=== PATIENT | female | born 1975 | race Caucasian/White ===

== ENCOUNTER → 2017-10-12 12:51 | Outpatient (CLI) | payer MEDICAID, SELFPAY ==
--- NOTE | 2017-10-12 12:55 | US_ITS ---
STUDY: THYROID ULTRASOUND REASON FOR EXAM: Female, 42 years old. Right side Nodule TECHNIQUE: Ultrasound evaluation of the thyroid was performed with real-time and static padron-scale imaging. COMPARISON: None. FINDINGS: RIGHT LOBE: The right lobe of the thyroid gland measures 5.1 x 2.6 x 1.7 cm. There is a heterogeneous echotexture. There is a 2.0 x 1.4 x 1.9 cm dominant partly solid partly cystic or hypoechoic center with vascularity . This is adjacent to a hypoechoic vascular appearing nodule that measures 1.2 x 0.9 cm. This is adjacent to a cystic structure with peripheral vascularity extends echogenicity measuring 0.7 x 0.7 cm. LEFT LOBE: The left lobe of the thyroid gland measures 5.1 x 1.7 x 1.4 cm. There is a homogeneous echotexture. There are several well-circumscribed nodules within the left thyroid. This is best seen on the image labeled left thyroid sagittal view. There is one in the superior aspect of the thyroid measuring 0.6 x 0.3 cm which is anechoic. There is a mixed echogenicity with calcification in the mid thyroid measuring 0.4 x 0.5 cm. In the lower pole there is a hypoechoic mass with a hyperechoic and hypoechoic center portion measures 1.1 x 0.5 cm. There is a 0.4 x 0.2 cm low attenuating mass in the upper aspect of the thyroid. ISTHMUS: The isthmus measures 1.5 mm there is a right-sided midline hypoechoic mass measuring 0.3 cm and the right midline thyroid.. The regional lymph nodes are normal. US/Thyroid IMPRESSION: There is a similar size of the bilateral thyroid glands which are upper limits of normal volume for patient's gender. Although there are small multiple nodules in both thyroid lobes, There is a dominant solid mass with a hypoechoic center is peripheral vascularity in the right for which further evaluation with tissue diagnosis should be considered. Potentially nuclear medicine scan would be helpful for further evaluation but should not necessarily exclude consideration for biopsy. Electronically Signed: Cat Mock MD at 10:32 EST Tel , Service support ,
== END ==
PROVIDERS: Family Provider Family Medicine; PCP Family Medicine; Visit Provider Family Medicine
DX: E04.1 Nontoxic single thyroid nodule (principal)
CPT/HCPCS: 76536

== ENCOUNTER → 2017-10-25 14:07 | Outpatient (CLI) | payer MEDICAID, SELFPAY ==
--- NOTE | 2017-10-25 | FLU_PTH ---
PATIENT: MORALES TOURE [facility] U#:[id number] AGE/SX: 50/F ROOM: RE10/25/[address]: Dr. Yoselin Frye MD : 1975 BED: DIS: SPEC #: [id number] RECD: 10/25/17 14:55 STATUS: RICHELLE SOLANGE #: [id number] ABIGAIL: 10/25/17 00:[address]: Yoselin Frye DEPT: CYTOLOGY RECD BY: Macario Gaona Tissues: A - Thyroid gland, NOS B - Thyroid gland, NOS C - Thyroid gland, NOS D - Thyroid gland, NOS Procedures: Pap Stain (control) Special Stain Group II Surgery Specimen Level IV Cell Block Cytospin Fluid HEADER OPERATION: Not noted PRE-OP DIAGNOSIS: Abnormal ultrasound thyroid TISSUE SUBMITTED: A ? Right side thyroid biopsy fluid for cytology, B ? Right thyroid 6 slides, C ? Left side thyroid biopsy fluid for cytology, D ? Left thyroid 6 slides DIAGNOSIS CYTOLOGY A. Right thyroid fluid for cytology (cytospin and cell block): Negative for malignant cells. B. Right thyroid nodule, FNA (smears): Consistent with benign follicular nodule. See cytology study and comment. C. Left thyroid fluid for cytology (cytospin and cell block): A few atypical follicular cells noted suspicious for papillary thyroid carcinoma. See cytology study and comment. D. Left thyroid nodule, FNA (smears): A few atypical follicular cells noted suspicious for papillary thyroid carcinoma. See cytology study and comment. COMMENT C. Immunohistochemistry ([id number]) supports the above diagnosis. Correlation with clinical, radiologic findings and appropriate follow up are necessary. Case has been reviewed in consultation with Dr. Krueger who concurs with the above diagnosis. IDC:AM CYTOLOGY STUDY Slides are reviewed. A. The specimen consists of rare benign follicular cells. B. The specimen is adequate for evaluation. The specimen consists of benign follicular cells and minimal amount of diluted colloid. C. The specimen consists of a few clusters of atypical follicular cells suspicious for papillary thyroid carcinoma. D. The specimen is adequate for evaluation. The specimen consists of follicular cells with a few follicular cells in clusters showing nuclear grooving and rare giant cells. Significant amount of colloid is not seen. CYTOLOGY GROSS A - Received is 30 ml of brown cloudy fluid labeled with the patient's name and and designated per the requisition as right thyroid. Submitted for cytology preparation including cell block. B - Received are six smears labeled with the patient's name and designated per the requisition as right thyroid. Submitted for staining. C - Received is 30 ml of brown cloudy fluid labeled with the patient's name and and designated per the requisition as left thyroid. Submitted for cytology preparation including cell block. D - Received are six smears labeled with the patient's name and designated per the requisition as left thyroid. Submitted for staining. 10/25/17 TC:5 CPT: 87324 x2, 77268 x2, 32434 x2 ADDENDUM ADDENDUM ADDENDUM ADDENDUM ADDENDUM ADDENDUM ADDENDUM ADDENDUM ADDENDUM ADDENDUM ADDENDUM ADDENDUM ADDENDUM ADDENDUM 12/27/2017 15:02 ADDENDUM 12/27/2017 15:02 ADDENDUM 12/27/2017 15:02 ADDENDUM 12/27/2017 15:02 ADDENDUM 12/27/2017 15:02 This addendum is added to incorporate an outside pathology consultation report. The case was examined at [facility] (#[id number]) and the following diagnosis was rendered. A & B. Right thyroid, fine needle aspiration: Benign. Benign follicular cells. Consistent with colloid nodule. C & D. Left thyroid, fine needle aspiration: Suspicious for papillary thyroid carcinoma. Please see complete above mentioned consultation report in EMR
--- NOTE | 2017-10-25 | IMM_PTH ---
PATIENT: MORALES TOURE LOC: [facility] U#:[id number] AGE/SX: 50/F ROOM: RE10/25/[address]: Dr. Yoselin Frye MD : 1975 BED: DIS: SPEC #: [id number] RECD: 10/26/17 13:59 STATUS: RICHELLE REQ #: [id number] ABIGAIL: 10/25/17 00:[address]: Yoselin Frye DEPT: IMMUNOHISTOCHEMISTRY RECD BY: Funmi Cheney ENTERED: 10/26/17 14:00 SP TYPE: IMMUNO OTHR DR: No Primary Care Phys Tissues: C - Thyroid gland, NOS Procedures: HBME (initial) CD56 (add) CK19 (add) GAL-3 (add) PHYSICIAN & INSTITUTION [place] [address] SPECIMEN INFORMATION: Tissue Source: C ? Left thyroid biopsy fluid for cytology Clinical Info: Abnormal thyroid ultrasound Specimen Number: [id number] CPT code: 88025, 29665 x3 METHODOLOGY: Deparaffinized sections of prefer/formalin-fixed tissue or PAP/DQ stained slides are incubated with monoclonal/polyclonal antibodies/oligonucleotide probes. Localization is made via biotin free immunoperoxidase method. Appropriate controls are performed and reacted as expected. Results on target cell population are indicated in the following table: RESULTS: ANTIBODY / CLONE RESULT Block C HBME1 (HBME-1) positive CK19 (A53-B/A2.26) positive CD56 (123C3.D5) negative GAL3 (9C4) positive These tests were developed and their performance characteristics determined by [facility]. They may not have been cleared or approved by the U.S. Food and Drug Administration. The FDA has determined that such clearance or approval is not necessary. INTERPRETATION: C. Left thyroid biopsy fluid for cytology: A few atypical follicular cells noted suspicious for papillary thyroid carcinoma. SJ:chaitanya 10/29/17 Case has been reviewed in consultation with Dr. Krueger who concurs with the above diagnosis. IDC:SPENSER
== END ==
PROVIDERS: Visit Provider Surgery
DX: R93.8 Abnormal findings on diagnostic imaging of other specified body structures (principal)
CPT/HCPCS: 88108; 88305; 88313; 88341; 88342

== ENCOUNTER 2017-11-09 16:14 | Observation (INO) | payer MEDICAID, SELFPAY ==
[2017-11-07 13:31] LABS: Hematocrit 40.8 % (37-47); Mean Corp Hgb Conc 34.3 g/gl (32-36); Mean Corpuscular Hgb 31.8 pg (27.0-32.0); Mean Corpuscular Volume 92.7 fL (81-99); Mean Platelet Vol. 10.6 fl (6.2-12.0); Platelet Count 194 K/mm3 (150-450); RBC Distribution Width SD 43.4 fl (35.1-43.9); White Blood Count 6.5 K/mm3 (4.4-11.0)
[2017-11-07 13:32] LABS: Scan Indicated on CBC? Y/N NO
[2017-11-09] VITALS (9 sets, daily range): BP systolic 103–140; BP diastolic 55–122; PULSE 63–135; RESP 16–18; TEMP 36.3–36.6; O2SAT 94–100; BMI 30.1
--- NOTE | 2017-11-09 | IMM_PTH ---
PATIENT: MORALES TOURE LOC: [facility] U#:[id number] AGE/SX: 42/F ROOM: MS315 RE11/09/[address]: Dr. Yoselin Frye MD : 1975 BED: 1 DIS: 11/10/2017 SPEC #: [id number] RECD: 11/13/17 12:22 STATUS: RICHELLE REQ #: [id number] ABIGAIL: 11/09/17 00:[address]: Yoselin Frye DEPT: IMMUNOHISTOCHEMISTRY RECD BY: Funmi Cheney ENTERED: 11/13/17 12:24 SP TYPE: IMMUNO OTHR DR: Sergio Tejeda Tissues: A - Thyroid gland, NOS B - Thyroid gland, NOS Procedures: HBME (initial) CD20 (add) CD45 (add) CD5 (add) CD56 (add) CD79A (add) CK19 (add) GAL-3 (add) MACRO (add) TTF1 (add) CD3 (initial) PHYSICIAN & [address] [address] SPECIMEN INFORMATION: Tissue Source: A ? Left thyroid, B ? Remnant left thyroid gland Clinical Info: Left thyroid nodule Specimen Number: [id number] A & B CPT code: 42834 x2, 30310 x10 METHODOLOGY: Deparaffinized sections of prefer/formalin-fixed tissue or PAP/DQ stained slides are incubated with monoclonal/polyclonal antibodies/oligonucleotide probes. Localization is made via biotin free immunoperoxidase method. Appropriate controls are performed and reacted as expected. Results on target cell population are indicated in the following table: RESULTS: ANTIBODY / CLONE RESULT Block A HBME1 (HBME-1) positive CK19 (A53-B/A2.26) positive GAL3 (9C4) positive CD56 (123C3.D5) negative TTF-1 (8G7G3/1) positive, dim Block B CD3 (PS1) positive CD5 (SP10) positive CD20 (L26) positive CD45 (RP2/18) positive CD79a (11E3) positive Macro (HAM-56) positive, occasional TTF-1 (8G7G3/1) negative These tests were developed and their performance characteristics determined by [facility]. They may not have been cleared or approved by the U.S. Food and Drug Administration. The FDA has determined that such clearance or approval is not necessary. INTERPRETATION: A. Left thyroid, thyroidectomy: Papillary microcarcinoma. B. Remnant left thyroid gland: Benign (polytypic) lymphoid tissue. AM:rg 3/7/18
--- NOTE | 2017-11-09 | THYROID_PTH ---
PATIENT: MORALES TOURE LOC: [facility] U#:[id number] AGE/SX: 42/F ROOM: MS315 RE11/09/[address]: Dr. Yoselin Frye MD : 1975 BED: 1 DIS: 11/10/2017 SPEC #: [id number] RECD: 11/09/17 14:30 STATUS: RICHELLE REMahesh #: [id number] ABIGAIL: 11/09/17 00:[address]: Yoselin Frye DEPT: SURGICAL PATHOLOGY RECD BY: Funmi Cheney ENTERED: 11/09/17 14:48 SP TYPE: THYROID OTHR DR: Sergio Tejeda Tissues: A - Thyroid gland, NOS B - Thyroid gland, NOS Procedures: Frozen Section (charge) Surgery Specimen Level IV Frozen (no charge) HEADER OPERATION: Thyroidectomy, frozen section PRE-OP DIAGNOSIS: Left thyroid nodule TISSUE SUBMITTED: A - Left thyroid tissue to lab 1426, B ? Remnant left thyroid gland FROZEN SECTION DIAGNOSIS A. Left thyroid tissue, biopsy: Calcified nodule. Atypical cellular follicular lesion, suspicious for papillary carcinoma. Lymphocytic thyroiditis. SJ:chaitanya 11/09/17 MICROSCOPIC DIAGNOSIS A. Left thyroid, thyroidectomy: Papillary microcarcinoma (5 mm). Associated fibrosis and calcifications. One benign lymph node. Chronic lymphocytic thyroiditis. B. Remnant, left thyroid gland, biopsy: Polytypic (benign) lymphoid tissue. See comment. AM:chaitanya 11/14/17 COMMENT A. A single calcified and hyalinized nodule is present and associated with a papillary carcinoma with follicular architecture. A & B. Immunohistochemistry ([id number]) supports the above diagnosis. Case has been reviewed in consultation with Dr. Hi who concurs with the above diagnosis. IDC: Reference is made to the patient?s left thyroid nodule, fine needle aspiration ([id number]) in which atypical follicular cells suspicious for papillary thyroid carcinoma were identified. Case discussed with Dr. Frye on 11/14/17 at 12:50 p.m. MICROSCOPIC DESCRIPTION Slides are reviewed. GROSS DESCRIPTION A - Received fresh for frozen section diagnosis labeled with the patient's name is a specimen designated left thyroid tissue. The specimen consists of a piece of pink-red soft tissue measuring 1.5 x 0.5 x 0.2 cm. A nodule is noted at one edge of the specimen measuring 0.3 cm in diameter. The specimen is bisected and nodule cuts with gritty sensation. The entire specimen is submitted for frozen section diagnosis. The specimen will be submitted after short decalcification. / SJ:chaitanya 11/09/17 B - Received in fixative is one container labeled with the patient's name and designated remnant left thyroid gland. The specimen consists of a piece of yellow adipose tissue weighing 0.4 gm and measuring 1.5 x 1 x 0.3 cm. The entire specimen is submitted in one cassette. / SJ:chaitanya 11/12/17 TC:0 [facility]: 47246 x2, 86101 ADDENDUM ADDENDUM ADDENDUM ADDENDUM ADDENDUM ADDENDUM ADDENDUM ADDENDUM ADDENDUM ADDENDUM ADDENDUM ADDENDUM ADDENDUM 12/26/2017 14:34 ADDENDUM 12/26/2017 14:34 ADDENDUM 12/26/2017 14:34 ADDENDUM 12/26/2017 14:34 ADDENDUM 12/26/2017 14:34 This addendum is added to incorporate an outside pathology consultation report. The case was examined at [facility] (#[id number]) and the following diagnosis was rendered. A. Left thyroid tissue, excision: 0.5 cm focus of papillary thyroid carcinoma. One lymph node, negative for neoplasm. B. Remnant left thyroid gland, excision: One lymph node with fibroadipose tissue, negative for neoplasm. Please see complete above mentioned consultation report in EMR
[2017-11-09] MEDS: Clindamycin 900 MG/50 ML BAG 75 MG IV (13:09)
--- NOTE | 2017-11-09 13:18 | PCM.IMDPSTOP ---
Immediate Post-Op Note Date of Procedure: 11/09/17 Primary Surgeon/Physician: Yoselin Frye cement mason highways and streets: Alfredito Gonsales Pre-Operative Diagnosis: left thyroid nodule - papillary neoplasm Post-Operative Diagnosis: same as above, can't be called cancer by pathologist Surgery/Procedure Performed:: left thyroidectomy Description of Surgical Findings:: very atretic left thyroid gland with fatty replacement Estimated Blood Loss: < 10 ml Specimen's removed: left thyroid lobe and isthmus Drains: 10 Fr round drain in thyroid bed Type of Anesthesia:: General ASA Class: ASA2 Mod Systematic Disease - Admit VTE Documentation VTE Present on Admission: Yes VTE Mechan Device Prophylaxis: SCD's
[2017-11-09] MEDS: Mupirocin Ointment 22gm Tube 1 APPLIC (15:03)
[2017-11-09] MEDS: Bupiv/Epi 0.5% Mpf 30 ML Vial (15:06)
--- NOTE | 2017-11-09 15:15 | OP.PCM_ITS ---
Report of Operation Date of Procedure: 11/09/17 Pre-Operative Diagnosis: left thyroid nodule - papillary neoplasm Post-Operative Diagnosis: same as above, final pathology pending Surgery/Procedure Performed:: left thyroidectomy Description of Surgical Findings:: very atretic left thyroid gland with fatty replacement, thyroid nodule - can't be called cancer by pathologist on frozen section outside solar sales consultant: Alfredito Gonsales student Gonzalez Harper Type of Anesthesia:: General Anesthesiologist: Megan Adler Specimen's removed: left thyroid lobe Drains: 10 Fr round drain in thyroid bed Estimated Blood Loss (mL): < 10 ml Fluids Replaced: 1500 ml RL Description of Procedure: After informed consent was obtained, the patient was brought to the Operating Room and placed in the supine position. Appropriate time out protocol was followed. She was then placed under GETA. The patient was then positioned with arms tucked and appropriate padding, with neck extension, and in the slightly reverse Trendelenburg position. The neck and upper chest were then prepped with a sterile surgical skin preparation and appropriate sterile surgical drapes were placed. The landmarks were identified and a low cervical collar incision was made with a 15 blade scalpel and carried down to the subcutaneous tissues using electrocautery. The platysma was divided along the incision and then flaps were created superiorly to the cricoid cartilage level and inferiorly to the sternal notch. The fascia overlying the strap muscles was then divided along the midline. The left thyroid gland was approached. Given anatomical landmarks, the left thyroid gland was found to be very atretic and with fatty replacement. The plane between the thyroid gland anterior and the strap muscles posteriorly was then bluntly dissected to expose the left thyroid gland. Dissection continued layer by layer to identify the inferior pole vessels of the left thyroid gland. The inferior pole vessels were identified and there was a nodular density in this area that was felt to be a palpable lymph node, therefore this tissue in its entirety was also dissected from its surrounding attachments. The vessels were ligated with ligaclips and then transected with the Harmonic scalpel. The middle thyroid vein was identified and also ligated with ligaclips and then transected with the Harmonic scalpel. The inferior pole was then bluntly dissected free of the surrounding investiture. The left lobe of the thyroid thus could be retracted medially. Attention was then directed to the superior pole of the thyroid gland. The superior pole vessels were then ligated adjacent to the thyroid lobe in order to prevent damage to the superior laryngeal nerve. The parathyroid gland was identified and care was taken to preserve the blood supply to the parathyroid gland. The recurrent laryngeal nerve was identified. It is of note that the thyroid appeared to have slight inflammation consistent with thyroiditis type presentation. Also was noted that the surrounding tissues appeared to be more adherent to the thyroid gland than usual. Once the thyroid tissue was free from the attachments to the trachea with the recurrent laryngeal nerve protected and dissection continued to separate the thyroid gland from the trachea. It was then forwarded to pathology. A frozen section revealed papillary neoplasm versus chronic lymphocytic thyroid changes. Surgicel was used for hemostasis. A small 10 Kazakh drain was then placed in the thyroid bed and brought out through the incision. The fascia of the strap muscles was then reapproximated along the midline using Vicryl suture. The platysma muscle was then reapproximated in a transverse fashion using interrupted 2-0 Vicryl suture. The skin incision was then reapproximated using 4 -0 Monocryl in a running subcuticular fashion. The drain was brought out through the middle portion of the incision and sutured to the skin using nylon suture. The skin closure was reinforced using Cavilon and Steri-Strips and a sterile OpSite dressing was applied. Prior to extubation, a glide scope examination was done. The vocal cords were noted to adduct bilaterally. The patient was then extubated. She was brought to the Recovery Room in stable condition. She was able to phonate the letter E without difficulty. Patient tolerated procedure well. - Complications none noted - Admit VTE Documentation VTE Present on Admission: Yes VTE Mechan Device Prophylaxis: SCD's
[2017-11-09] MEDS: ALPRAZolam 0.5 MG Tablet PO (17:42)
[2017-11-09] MEDS: Dextrose 5%-Lactated Ringers 1,000 ML 75 ML IV (17:42)
[2017-11-09] MEDS: Ibuprofen 400 MG Tablet PO (17:42)
[2017-11-09] MEDS: Ondansetron 4 MG/2 ML Vial IV (20:43)
[2017-11-09] MEDS: 0.9% NaCl Peripheral Flush Adult/Peds IV (20:43)
[2017-11-09] MEDS: HYDROmorphone HCL 0.5 MG/0.5 ML SYRINGE IV (20:43)
--- NOTE | 2017-11-09 22:45 | NURSING ---
Patient markedly anxious this evening. Calling staff to room frequently for concerns r/t to surgery. Patient is googling information about surgery and medications. Some items she is concerned about are: Calcium levels, thyroid storm, DEWAYNE drains, Infection, hypo/hyperparathyroid and IV fluid. She is asking many questions, but is not easily re-assured and will ask someone else the same question. She is refusing PRN Ativan at this time. She also refused QHS Restoril because the commercial lists bad side effects. Patient is also concerned about her IVF and is requesting for the fluids to be decreased. Informed I have no order and would have to call Dr. Frye, but patient remained adamant that she did not was IVF. I educated patient on surgical reasoning for IVF. Patient remains concerned-Will continue to monitor.
[2017-11-10] MEDS: 0.9% NaCl Peripheral Flush Adult/Peds IV ×2 (00:32→02:25)
[2017-11-10] MEDS: HYDROmorphone HCL 0.5 MG/0.5 ML SYRINGE IV ×2 (00:32→09:26)
--- NOTE | 2017-11-10 00:32 | NURSING ---
Patient refusing oral pain pills @ this time. Requesting IV pain medication
[2017-11-10] MEDS: LORazepam 2 MG/ML Syringe 0.5 MG IV (02:25)
[2017-11-10 02:30] VITALS: BP 104/59; PULSE 63; RESP 16; TEMP 36.7; O2SAT 95
[2017-11-10] MEDS: oxyCODONE 5 MG Tablet PO ×2 (03:57→08:24)
[2017-11-10] MEDS: ALPRAZolam 0.5 MG Tablet 1 MG PO (07:18)
[2017-11-10 08:34] VITALS: BP 110/62; PULSE 65; RESP 16; TEMP 36.7; O2SAT 97
[2017-11-10] MEDS: Docusate Sodium 100 MG Capsule PO (11:43)
[2017-11-10 11:46] VITALS: BP 113/65; PULSE 64; RESP 16; TEMP 36.6; O2SAT 95
--- NOTE | 2017-11-10 12:39 | PCM.PN.SRG ---
Subjective: patient did not sleep last night, is still very anxious, seems to have chest muscle spasms due to anxiety causing increased pain, I have counseled her about narcotics use, she wanted 10 mg percocet last night - Physical Exam General: Alert, Oriented x3 Oral: Moist Mucosa Neck: Supple, - - dressing intact, no seepage, drain removed without difficulty Lungs: Normal air movement Vital Signs Temp Pulse Resp BP Pulse Ox 97.8 F 64 16 113/65 95 11/10/17 11:46 11/10/17 11:46 11/10/17 11:46 11/10/17 11:46 11/10/17 11:46 Oxygen Delivery Method Room Air Weight: 82.2 kg Body Mass Index (BMI) 30.1 Intake and Output for Last 24 Hours 11/08/17 11/09/17 11/10/17 23:59 23:59 23:59 Intake Total 1900 / 1900 2240 / 2240 Output Total 145 / 145 4100 / 4100 Balance 1755 / 1755 -1860 / -1860 Assessment/Plan Impression: s/p left thyroidectomy plan: discharge to home given ativan/oxyir/phenergan for discharge I have counseled patient about narcotics use, she states that she will take as minimal amount as possible she is to follow up on in my office
--- NOTE | 2017-11-10 12:41 | PCM.DC.GS ---
Discharge Diet: No Restrictions - drink plenty of fluids Discharge Activity: Return to Normal Activity, May not drive while taking narcotic pain medications., May Shower Call your doctor if your incision/area has: Foul Smelling Discharge, - - saturation of the dressing Call your doctor if you observe: Fever of 101 or Higher Additional Dressing/Incision Instructions:: Leave dressing in place, may get wet in shower Additional Instructions: If you become short of breath or have chest pain, go to the nearest ER for evaluation. Allergies/Adverse Reactions: Allergies codeine [From Tylenol-Codeine #3] Allergy (Verified 11/06/17 08:48) Shortness of breath diphenhydramine HCl [From Benadryl] Allergy (Verified 11/06/17 08:48) Unknown nitrofurantoin [From Macrobid] Allergy (Verified 11/06/17 08:48) Unknown erythromycin base Adverse Reaction (Verified 11/06/17 08:48) YEAST INFECTION oxycodone [From Percocet] Adverse Reaction (Verified 11/06/17 08:48) Other MADE HER FEEL LIKE SHE WAS GOING TO JUMP OUT OF HER SKIN Medications to take at Discharge ALPRAZolam [Xanax] 0.5 mg PO BID 10/31/14 Ibuprofen 800 mg PO Q8H PRN PRN #30 tablet 06/14/17 Lorazepam [Ativan] 0.5 mg PO DAILY 5 Days #5 tab 11/10/17 ProMETHAzine [Phenergan] 25 mg PO Q4H PRN PRN 3 Days #5 tab 11/10/17 The following prescriptions were given: ProMETHAzine [Phenergan] 25 mg PO Q4H PRN PRN 3 Days #5 tab PRN Reason: Nausea/Vomiting Lorazepam [Ativan] 0.5 mg PO DAILY 5 Days #5 tab Please Follow Up With: Yoselin Frye MD - call When: to be seen on Nov 15, please call for time, thank you
== END 2017-11-10 13:57 | disposition home or self-care (01) ==
LOC: MS3 16:28
PROVIDERS: Admitting Provider Surgery; Visit Provider Surgery
PROC: (CPT 60220; principal; 2017-11-09 13:15)
DX: E04.1 Nontoxic single thyroid nodule (principal); E06.3 Autoimmune thyroiditis; F41.9 Anxiety disorder, unspecified; F17.200 Nicotine dependence, unspecified, uncomplicated; E78.00 Pure hypercholesterolemia, unspecified; Z79.899 Other long term (current) drug therapy
CPT/HCPCS: 60220; 36415; 85027; 88305; 88307; 88331; 88341; 88342; 96361; 96374; 96375; 96376; 99218; J3010; J7120; A4216; G0378; G0379; J2405

== ENCOUNTER 2018-05-20 05:58 | Emergency (ER) | payer MEDICAID, SELFPAY ==
[2018-05-20 06:01] VITALS: BP 106/64; PULSE 94; RESP 16; TEMP 36.7; O2SAT 98; BMI 34.2
--- NOTE | 2018-05-20 06:32 | ED.RN ---
0625 PT WAS IN THE BATHROOM AND SHE LEFT AND THE BATHROOM SMELLED OF SMOKE.PT DID NOT HAVE AN IV.
--- NOTE | 2018-05-20 06:48 | EKG12_ITS ---
Test Reason : CP Blood Pressure : / mmHG Vent. Rate : 097 BPM Atrial Rate : 097 BPM P-R Int : 144 ms QRS Dur : 070 ms QT Int : 372 ms P-R-T Axes : 049 032 040 degrees QTc Int : 472 ms Normal sinus rhythm Normal ECG Confirmed by GERARDO ROSALES MD ([id number]), order editor NICK DUBOIS ([id number]) on 05/22/2018 1:36:46 PM Referred By: KERRIE Confirmed By:GERARDO ROSALES MD
--- NOTE | 2018-05-20 06:49 | ED.VIS.GEN ---
History of Present Illness Chief Complaint: Chest Pain Informant: Patient Onset: Hours - 12-13 Context: Gradual Onset Timing: Intermittent - but mostly present, constant when there, lasting for hours Quality: squeezing Location: substernal, mid-chest Current Severity: gone Maximum Severity: Moderate Worsened by: nothing Relieved by: nothing Associated Symptoms: R upper arm cramping. no sob, n/v, other radiation, diaphoresis, palps. Narrative: Patient states she drank an entire bottle of red wine just prior to arrival, hoping it would help but it did not do anything. However, she has no discomfort right now. I initially saw the patient after 30 minutes of being here, because just after her EKG being performed I went into the room and she was not there, because she was in the bathroom smoking. She then went outside to finish her cigarette, and returned to her ER room. She does not recall having had these symptoms before. They have been nonpleuritic. No other associated symptoms or near syncope. She asked if these symptoms could be due to lots of stress, she buried her children last year. No recent travel, immobilization, hospitalization, leg pain or swelling, or history of DVT/PE. 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 She states she is in full remission and has undergone no chemotherapy or other treatment since her surgery. - Past Medical History (1) Papillary thyroid carcinoma Status: Resolved Past Medical History - Allergies and Home Meds Allergies/Adverse Reactions: Allergies codeine [From Tylenol-Codeine #3] Allergy (Verified 05/20/18 07:01) Shortness of breath diphenhydramine HCl [From Benadryl] Allergy (Verified 05/20/18 07:01) Unknown nitrofurantoin [From Macrobid] Allergy (Verified 05/20/18 07:01) Unknown erythromycin base Adverse Reaction (Verified 05/20/18 07:01) YEAST INFECTION oxycodone [From Percocet] Adverse Reaction (Verified 05/20/18 07:01) Other MADE HER FEEL LIKE SHE WAS GOING TO JUMP OUT OF HER SKIN Primary Care Physician: Sergio Tejeda MD [Primary Care Provider] - Surgical History: - - Thyroidectomy Smoking Status: Current every day smoker Alcohol: Occasional Drugs: None - Denies cocaine use Review of Systems All systems negative except as indicated Cardiovascular: Reports: Chest pain - Gone presently Musculoskeletal: Reports: Extremity Pain - Upper right arm, gone presently Physical Exam Vital Signs/Narrative: Vital Signs Temp Pulse Resp BP Pulse Ox 05/20/18 06:01 98.0 F 94 16 106/64 98 Inital Vital Signs reviewed: Yes General: Well nourished, Well developed, - - Grossly intoxicated. Cooperative. Head: Normocephalic, Atraumatic Eyes: Perrl, EOMI. Negative for: Scleral icterus ENT: Moist mucous membranes, No rhinorrhea Neck: Supple, Nontender, No lymphadenopathy, No JVD Cardiovascular: Regular rate, Regular rhythm, No murmurs Respiratory: No distress, CTA bilaterally, Chest nontender Abdomen: Soft, Nontender, Nondistended, Normal bowel sounds Back: Nontender, Normal Inspection Extremities: Nontender - Including negative Homans bilaterally, No edema Skin: Normal color, No rash Neurological: Alert, Oriented x3, Cranial nerves II-XII grossly intact, Normal Strength, Normal Sensation Psychological: Normal affect Diagnostic/Tx/Re-eval Impressions Chest X-Ray 05/20/18 06:55 IMPRESSION: Normal x-ray examination of the chest. Electronically Signed: Jayy Bhatia MD at 7:07 EDT Tel , Service support , 05/20/18 06:55 Chest 1 View (Portable) [RAD] Stat Laboratory Results 05/20/18 05/20/18 Range/Units 07:05 07:05 WBC 5.2 (4.4-11.0) K/mm3 RBC 4.41 (4.2-5.4) M/mm3 Hgb 14.3 (12.0-15.0) g/dl Hct 40.7 (37-47) % MCV 92.3 (81-99) fL MCH 32.4 H (27.0-32.0) pg MCHC 35.1 (32-36) g/gl RDW 12.9 (11.6-14.6) % RDW Differential 42.9 (35.1-43.9) fl Plt Count 236 (150-450) K/mm3 MPV 10.4 (6.2-12.0) fl Immature Gran % (Auto) 0.200 (0.0-0.9) % Neut % (Auto) 57.0 (47-70) % Lymph % (Auto) 32.1 (19-41) % [place] % (Auto) 7.2 (0-10) % Eos % (Auto) 2.9 (0-5) % Baso % (Auto) 0.6 (0-1) % Absolute Neuts (auto) 3.0 (2.0-7.7) X10^3/uL Absolute Lymphs (auto) 1.66 (0.83-4.51) X10^3/ul Total Counted Not Reportable Sodium 145 (136-145) mmol/L Potassium 3.8 (3.5-5.1) mmol/L Chloride 113 H (98-107) mmol/L Carbon Dioxide 22.0 (21.0-32.0) mmol/L Anion Gap 10 (5-15) BUN 8 (7-18) mg/dL Creatinine 0.64 (0.55-1.02) mg/dL Estim Creat Clear Calc 98.88 ml/min Est GFR (MDRD) Af Amer 130 (>60) mL/min Est GFR (MDRD) Non-Af 107 (>60) mL/min BUN/Creatinine Ratio 12.4 (10-20) RATIO Glucose 103 (74-106) mg/dL Calcium 8.4 L (8.5-10.1) mg/dL Troponin I < 0.015 (<0.045) ng/mL - Rhythm Strip Rhythm Strip: Sinus Rhythm Rate: 95 Ectopy: None - EKG Initial EKG Interpretation: Sinus Rhythm, No Acute Injury Pattern, - - Normal axis. Normal EKG. - Medical Decision Making EKG is normal, troponin is normal after 12 hours of discomfort, which she has had for the most part although it is gone now. HEART score is 1, for history. Delta troponin is not necessary given the timing of symptoms. Since she is intoxicated, she may be discharged but we will help her call for a ride. She is not suicidal. She is encouraged to follow-up with her doctor for further evaluation as an outpatient. ED Disposition - Plan for ED Patient: Disposition: Home or Assisted Living Chief Complaint: Chest Pain Diagnosis: Chest pain, unspecified, Alcohol intoxication Instructions: ED Chest Pain Atypical Unkn Cause Referrals: Sergio Tejeda MD [Primary Care Provider] - 3-5 Days
[2018-05-20 07:12] LABS: Absolute Lymphocyte Count 1.66 X10^3/ul (0.83-4.51); Basophil# 0.03 X10^3/uL; Basophil% 0.6 % (0-1); Eosinophil# 0.15 X10^3/uL; Eosinophils% 2.9 % (0-5); Hematocrit 40.7 % (37-47); Hemoglobin 14.3 g/dl (12.0-15.0); Lymphocyte # 1.66 X10^3/ul (4.0); Lymphocyte % 32.1 % (19-41); Mean Corp Hgb Conc 35.1 g/gl (32-36); Mean Corpuscular Hgb 32.4 pg (27.0-32.0); Mean Corpuscular Volume 92.3 fL (81-99); Mean Platelet Vol. 10.4 fl (6.2-12.0); Monocyte# 0.37 X10^3/uL; Monocyte% 7.2 % (0-10); Neutrophil # 2.95 X10^3/uL (2.7-7.7); Platelet Count 236 K/mm3 (150-450); RBC Distribution Width CV 12.9 % (11.6-14.6); RBC Distribution Width SD 42.9 fl (35.1-43.9); Red Blood Count 4.41 M/mm3 (4.2-5.4); White Blood Count 5.2 K/mm3 (4.4-11.0)
[2018-05-20 07:15] VITALS: PULSE 103; RESP 14; O2SAT 95
[2018-05-20 07:17] VITALS: PULSE 97; RESP 16; O2SAT 95
[2018-05-20 07:25] LABS: Anion Gap 10 (5-15); BUN 8 mg/dL (7-18); BUN/Creat Ratio 12.4 RATIO (10-20); Calcium,Total 8.4 mg/dL (8.5-10.1); Chloride 113 mmol/L (98-107); Creatinine, Serum 0.64 mg/dL (0.55-1.02); EST Glomerular Filtration Rate 107 mL/min (>60); Est Glom Filt Rate - Afr Amer 130 mL/min (>60); Estimated Creatinine Clearance 98.88 ml/min; Glucose 103 mg/dL (74-106); Potassium 3.8 mmol/L (3.5-5.1); Sodium Level 145 mmol/L (136-145)
[2018-05-20 07:27] LABS: POSITIVE COUNT NO; POSITIVE DIFFERENTIAL NO; POSITIVE MORPHOLOGY NO
[2018-05-20 08:06] VITALS: BP 105/50; PULSE 91; RESP 18; O2SAT 96
== END 2018-05-20 08:07 | disposition home or self-care (01) ==
PROVIDERS: Emergency Provider Emergency Medicine; PCP Family Medicine
DX: R07.9 Chest pain, unspecified (principal); F10.129 Alcohol abuse with intoxication, unspecified; E03.8 Other specified hypothyroidism; Z85.850 Personal history of malignant neoplasm of thyroid; Z79.899 Other long term (current) drug therapy
CPT/HCPCS: 71045; 80048; 84484; 85025; 93005; 99285; A4216

== ENCOUNTER → 2021-01-19 15:08 | Outpatient (CLI) | payer SELFPAY ==
--- NOTE | 2021-01-19 15:13 | US_ITS ---
STUDY: SUPERFICIAL ULTRASOUND - NECK. REASON FOR EXAM: Female, 45 years old. NECK SWELLING TECHNIQUE: A superficial ultrasound was performed with real-time and static padron-scale imaging. COMPARISON: None. FINDINGS: The right and left sides of the neck was examined. No sonographic abnormality is seen. US/Head/Neck Soft Tissue IMPRESSION: No sonographic abnormality is seen.. Electronically Signed: Steven Casey MD at 9:23 EDT , Service support ,
--- NOTE | 2021-01-19 15:13 | US_ITS ---
STUDY: THYROID ULTRASOUND REASON FOR EXAM: Female, 45 years old. NECK SWELLING STATUS post total thyroidectomy TECHNIQUE: Ultrasound evaluation of the thyroid was performed with real-time and static padron-scale imaging. COMPARISON: 10/12/17 FINDINGS: Status post total thyroidectomy. No residual tissue. No suspicious lymphadenopathy US/Thyroid IMPRESSION: As above Electronically Signed: Carroll Dawn DO at 6:08 EDT Tel , Service support ,
== END ==
PROVIDERS: PCP Family Medicine; Referring Provider Family Medicine; Visit Provider Family Medicine
DX: R22.1 Localized swelling, mass and lump, neck (principal)
CPT/HCPCS: 76536

== ENCOUNTER 2021-05-14 20:03 | Emergency (ER) | payer MEDICAID, SELFPAY ==
[2021-05-14 20:05] VITALS: BP 121/71; PULSE 89; RESP 16; TEMP 36.4; O2SAT 99; BMI 31.1
[2021-05-14 20:07] VITALS: BP 121/71; PULSE 89; RESP 16; TEMP 36.4; O2SAT 99
[2021-05-14 20:18] VITALS: O2SAT 100
--- NOTE | 2021-05-14 20:18 | EKG12_ITS ---
Test Reason : CP Blood Pressure : / mmHG Vent. Rate : 074 BPM Atrial Rate : 074 BPM P-R Int : 150 ms QRS Dur : 072 ms QT Int : 396 ms P-R-T Axes : 012 -13 031 degrees QTc Int : 439 ms Normal sinus rhythm Normal ECG Confirmed by EDSON EDUARDO, SAMANTHA ([id number]), make up editor MIHAI BUENO ([id number]) on 05/17/2021 8:08:12 AM Referred By: FRANKY Confirmed By:ONRBERT SANDHU MD
--- NOTE | 2021-05-14 20:22 | RAD_ITS ---
STUDY: X-RAY CHEST REASON FOR EXAM: Female, 46 years old. Chest pain TECHNIQUE: Frontal view COMPARISON: 05/20/2018 FINDINGS: The lungs are clear and expanded. There is no demonstrated pleural abnormality. Normal size heart. Normal mediastinum and paloma. Normal visualized pulmonary arteries. Normal visualized aortic arch and descending thoracic aorta. Normal visualized thoracic spine. Normal visualized ribs, clavicles, and shoulders. There is no demonstrated abnormality of the visualized soft tissue structures of the upper abdomen. RAD/Chest 1 View (Portable) IMPRESSION: Normal x-ray examination of the chest. Electronically Signed: Jacinto Romero DO at 21:09 EDT Tel [phone], Service support ,
[2021-05-14 20:26] LABS: Absolute Lymphocyte Count 2.41 X10^3/uL (0.83-4.51); Absolute Neutrophil Count 4.8 X10^3/uL (2.0-7.7); Basophil# 0.04 X10^3/uL; Basophil% 0.5 % (0-1); Eosinophil# 0.19 X10^3/uL; Eosinophils% 2.4 % (0-5); Hematocrit 43.9 % (37-47); Hemoglobin 14.9 g/dL (12.0-15.0); Lymphocyte # 2.41 X10^3/ul (0.83-4.51); Lymphocyte % 30.1 % (19-41); Mean Corp Hgb Conc 33.9 g/dL (32-36); Mean Corpuscular Hgb 31.9 pg (27.0-32.0); Mean Platelet Vol. 10.2 fl (6.2-12.0); Monocyte# 0.57 X10^3/uL; Monocyte% 7.1 % (0-10); NRBC Flagged by Analyzer 0 % (0-5); Neutrophil # 4.76 X10^3/uL (2.7-7.7); Neutrophil % 59.5 % (47-70); Platelet Count 262 K/mm3 (150-450); RBC Distribution Width CV 12.8 % (11.6-14.6); Red Blood Count 4.67 M/mm3 (4.2-5.4)
[2021-05-14 20:59] LABS: Anion Gap 6 (5-15); BUN 20 mg/dL (7-18); BUN/Creat Ratio 28.4 RATIO (10-20); Calcium,Total 9.1 mg/dL (8.5-10.1); Chloride 104 mmol/L (98-107); EST Glomerular Filtration Rate 96 mL/min (>60); Est Glom Filt Rate - Afr Amer 116 mL/min (>60); Estimated Creatinine Clearance 91.32 ml/min; Glucose 104 mg/dL (74-106); Potassium 3.8 mmol/L (3.5-5.1); Sodium Level 136 mmol/L (136-145); Troponin-I HS 4 pg/mL (3.0-54.0)
[2021-05-14 21:27] VITALS: BP 103/74; PULSE 71; RESP 16; O2SAT 97
--- NOTE | 2021-05-14 21:31 | ED.VIS.CHEST ---
HPI History of Present Illness Chief Complaint: Chest Pain Narrative Narrative: 46-year-old female presenting with chest pain. She describes it as retrosternal. She describes it as sharp and radiating to the left and to the right as well as up into her neck. She states it is intermittent for about an hour. It is now gone. Patient denies any cardiac history. She is a smoker. She denies any other medical problems. She denies fever, chills, cough. PFSH PFSH Medical History Anxiety Home Medications alprazolam 0.5 mg PO TID 10/31/14 [History Last Taken 11/09/17 11:00] levothyroxine 125 mcg PO DAILY 05/14/21 [History Last Taken Unknown] Allergy/AdvReac Type Severity Reaction Status Date / Time codeine Allergy Shortness Verified 05/14/21 20:08 [From Tylenol-Codeine #3] of breath diphenhydramine HCl Allergy Unknown Verified 05/14/21 20:08 [From Benadryl] nitrofurantoin Allergy Unknown Verified 05/14/21 20:08 [From Macrobid] erythromycin base AdvReac YEAST Verified 05/14/21 20:08 INFECTION oxycodone [From Percocet] AdvReac Other Verified 05/14/21 20:08 Surgical History H/O thyroidectomy H/O: hysterectomy Social History Smoking Status: Current every day smoker tobacco type: cigarettes ROS ROS ED Constitutional Constitutional ED: Denies fever(s) or subjective Eyes Eyes: Denies blurry vision or change in vision ENT ENT ED: Denies rhinorrhea or sore throat Cardiovascular Cardiovascular: Reports chest pain Respiratory/Chest Respiratory/Chest: Denies cough, dyspnea or sputum Gastrointestinal Gastrointestinal: Denies abdominal pain, nausea or vomiting Genitourinary Genitourinary ED: Denies dysuria or hematuria Musculoskeletal Musculoskeletal: Denies arthralgias or myalgias Integumentary Denies Abrasions or rash Neurologic Neurologic: Denies headache(s) or weakness Psychiatric Psychiatric: Reports anxiety; Denies suicidal ideation or suicidal thoughts EXAM Physical Exam Const Vital Signs: 05/14/21 20:05 05/14/21 20:07 05/14/21 20:18 Temperature 97.6 F L 97.6 F L Temperature Source Temporal Temporal Pulse Rate 89 89 Respiratory Rate 16 16 Respiratory Effort Normal Blood Pressure 121/71 H 121/71 H Blood Pressure Mean 87 87 Pulse Ox 99 99 100 Oxygen Delivery Method Room Air Room Air Room Air 05/14/21 21:27 Temperature Temperature Source Pulse Rate 71 Respiratory Rate 16 Respiratory Effort Blood Pressure 103/74 Blood Pressure Mean 83 Pulse Ox 97 Oxygen Delivery Method Room Air Positive well nourished General Appearance ED: NAD HEENT Reports moist mucous membranes normocephalic and atraumatic Eyes PERRL and EOMs intact bilaterally General Eye ED: Negative for scleral icterus Resp normal respiratory effort Effort and Inspection: respiratory distress Cardio regular rate and regular rhythm Extremity Negative for normal to inspection General Extremety ED: Negative for tenderness Neuro oriented x3 Sensorium / Orientation: awake and alert Psych mental status grossly normal Skin no rashes or lesions noted Heart Score History: Slightly/Non-Suspicious ECG: Normal Age: </= 45 years Risk Factors: 1 or 2 Risk Factors Troponin: </= Normal Limit Score: 1 MDM MDM MDM Narrative Medical decision making narrative: Patient presenting with chest pain which is now resolved. She describes it as sharp and radiating across her chest. EKG on my interpretation shows normal sinus rhythm with a ventricular rate of 74 bpm. There are no signs of ischemic changes. Chest x-ray my interpretation shows no acute cardiopulmonary process and the radiologist does agree. Lab work-up thus far is normal. Troponin is negative. Patient is PERC negative. Will check a 2-hour cardiac enzyme. Patient declines anything for pain or nausea. Patient is currently stable and will sign out in coming ED physician for follow-up on second troponin. If this is negative she will be discharged home. Impression: 1. Chest pain Lab Data Attestation: I reviewed the patient's lab results. Labs: Laboratory Results - last 24 hr 05/14/21 05/14/21 20:15 20:15 WBC 8.0 RBC 4.67 Hgb 14.9 Hct 43.9 MCV 94.0 MCH 31.9 MCHC 33.9 RDW Std Deviation 44.0 H RDW Coeff of [place]net[place] 12.8 Plt Count 262 MPV 10.2 Immature Gran % (Auto) 0.400 Neut % (Auto) 59.5 Lymph % (Auto) 30.1 [place] % (Auto) 7.1 Eos % (Auto) 2.4 Baso % (Auto) 0.5 Absolute Neuts (auto) 4.8 Absolute Lymphs (auto) 2.41 Nucleated RBC % 0 Sodium 136 Potassium 3.8 Chloride 104 Carbon Dioxide 26.0 Anion Gap 6 BUN 20 H Creatinine 0.70 Estim Creat Clear Calc 91.32 Est GFR (MDRD) Af Amer 116 Est GFR (MDRD) Non-Af 96 BUN/Creatinine Ratio 28.4 H Glucose 104 Calcium 9.1 Troponin I High Sens 4 Radiography Diagnostic Testing: Radiology Impression Chest X-Ray 05/14/21 20:22 IMPRESSION: Normal x-ray examination of the chest. Electronically Signed: Jacinto Romero DO at 21:09 EDT Tel [phone], Service support , Discharge Plan Triage Chief Complaint: Chest Pain ED Provider: Forrest Chen Dx/Rx/DC Orders Instructions: ED Chest Pain, Noncardiac Prescriptions: No Action alprazolam 0.5 MG tablet 0.5 mg PO TID RF: 0 levothyroxine 125 mcg tablet 125 mcg PO DAILY RF: 0 Primary Care Provider: Sergio Tejeda Referrals: Sergio Tejeda MD [Primary Care Provider] - Disposition Disposition: Home, Self Care
[2021-05-14 22:00] VITALS: BP 108/67; PULSE 81; RESP 16; O2SAT 97
[2021-05-14 22:47] LABS: Troponin-I HS 4 pg/mL (3.0-54.0)
[2021-05-14 23:13] VITALS: BP 99/77; PULSE 60; RESP 18; O2SAT 96
== END 2021-05-14 23:17 | disposition home or self-care (01) ==
PROVIDERS: Emergency Provider Student in an Organized Health Care Education/Training Program; PCP Family Medicine
DX: R07.9 Chest pain, unspecified (principal); F41.9 Anxiety disorder, unspecified; F17.210 Nicotine dependence, cigarettes, uncomplicated; Z79.899 Other long term (current) drug therapy
CPT/HCPCS: 71045; 80048; 84484; 85025; 93005; 99283; A4216

== ENCOUNTER → 2021-06-17 11:35 | Outpatient (CLI) | payer MEDICAID, SELFPAY ==
[2021-06-17 14:26] LABS: Estradiol 112.9 pg/mL; Follicle Stimulating Hormone 4.1 mIU/mL; Luteinizing Hormone 4.7 mIU/mL
== END ==
PROVIDERS: PCP Family Medicine; Visit Provider Student in an Organized Health Care Education/Training Program
DX: N95.1 Menopausal and female climacteric states (principal); N77.1 Vaginitis, vulvitis and vulvovaginitis in diseases classified elsewhere; Z11.3 Encounter for screening for infections with a predominantly sexual mode of transmission
CPT/HCPCS: 36415; 82670; 83001; 83002

== ENCOUNTER → 2021-06-22 11:45 | Outpatient (CLI) | payer MEDICAID, SELFPAY ==
--- NOTE | 2021-06-22 12:06 | BI_ITS ---
MAMMOGRAPHY - BILATERAL SCREENING REASON FOR EXAM: Female, 46 years old. Routine annual screening examination. PERTINENT HISTORY: Aunt with breast cancer. TECHNIQUE: Digital bilateral breast terence (3D mammographic acquisition) in the CC and MLO projections. 2-D mediolateral oblique (MLO) and craniocaudad (CC) views of both breasts were obtained. CAD: Full Field Digital Mammography with Computer Added Detection was performed. COMPARISON: Comparison is made with prior study done 04/16/2017 and 04/04/2016. FINDINGS: Breast Composition: There are scattered areas of fibroglandular density. There are no dominant masses or suspicious calcifications. No other significant abnormalities are identified. There has been no significant change since the prior study. BI/SCRN MAMM (CAD)W/TERENCE BILAT IMPRESSION: Stable bilateral screening mammogram. Yearly follow-up mammogram recommended. (A) ASSESSMENT CATEGORY: BIRADS Category 1: Negative. A letter regarding these results will be sent to the patient by the facility within 30 days. Approximately 10% of breast cancers are not detected by mammography. A normal mammogram should not delay biopsy of a clinically suspicious abnormality. [id number] Electronically Signed: Steven Casey MD at 13:55 EDT , Service support ,
== END ==
PROVIDERS: PCP Family Medicine; Referring Provider Family Medicine; Visit Provider Family Medicine
DX: Z12.31 Encounter for screening mammogram for malignant neoplasm of breast (principal)
CPT/HCPCS: 77063; 77067

== ENCOUNTER 2021-06-23 04:34 | Emergency (ER) | payer MEDICAID, SELFPAY ==
[2021-06-23 04:34] VITALS: BP 120/50; PULSE 72; RESP 18; TEMP 36.7; O2SAT 95; BMI 29.1
--- NOTE | 2021-06-23 04:53 | CT_ITS ---
HISTORY: headache TECHNIQUE: Noncontrast axial images were obtained of the brain. Subsequently, routine carotid CT angiogram protocol was performed with IV contrast. In addition, images were obtained of the [place]. Nascet criteria using the distal ICAs for comparison were used for evaluation of stenoses. 2-D and 3-D reconstructions were reviewed. A radiation dose optimization technique was used for this scan. IV Contrast dosage and agent: 100mL [id number] COMPARISON: Head CT from 06/11/16 FINDINGS: --CT BRAIN: BRAIN PARENCHYMA: No intra- or extra-axial hemorrhage. No evidence of acute infarct. No intracranial mass or mass effect. There is preservation of the padron/white matter interface. Posterior fossa structures are unremarkable. CSF SPACES: Appropriate for age. No hydrocephalus. Basal cisterns are patent. CALVARIUM, SKULL BASE, PARANASAL SINUSES AND MASTOID AIR CELLS: Clear. No discrete lytic or blastic abnormalities. ORBITS: Unremarkable orbits and globes. ASPECTS Score for Acute Strokes: NA --CTA NECK: AORTIC ARCH AND BRANCHES: Unremarkable with no dissection, occlusion or significant stenosis. RIGHT CCA: No occlusion, significant stenosis or dissection. RIGHT ICA: No occlusion, significant stenosis or dissection. LEFT CCA: No occlusion, significant stenosis or dissection. LEFT ICA: No occlusion, significant stenosis or dissection. RIGHT VERTEBRAL ARTERY: No occlusion, significant stenosis or dissection. LEFT VERTEBRAL ARTERY: No occlusion, significant stenosis or dissection. NECK SOFT TISSUES: No acute findings. Status post thyroidectomy. LUNG APICES: Clear. BONES: Unremarkable. --CTA HEAD: --Anterior circulation: ICAs: No significant stenosis at the intracranial/visualized segments. ACAs: No significant stenosis at the visualized segments. ACOM: Present. MCAs: No significant stenosis at the visualized segments. --Posterior circulation: PCOMs: Patent bilaterally. rubber goods finisher: No significant stenosis at the visualized segments. BASILAR ARTERY: No significant stenosis. VERTEBRAL ARTERIES: No significant stenosis at the intradural/visualized segments. No evidence of intracranial aneurysm or vascular malformation. CT/CTA Head AND Neck W/ Contrast IMPRESSION: Negative CT Brain, CTA Carotid, and CTA Brain. Individualized dose optimization techniques were used for this CT. at 0630 Reported and signed by: Marty Edwards MD Electronically Signed: Marty Edwards MD at 6:29 EDT Tel , Service support ,
--- NOTE | 2021-06-23 04:54 | EX.ED.DYSGE1 ---
HPI History of Present Illness Chief Complaint: Headache Informant: patient Narrative Narrative: 46-year-old female states that 1 hour prior to arrival she began to get a sharp pain on the right posterior side of her neck travels up posterior to the ear towards the top of her head. She states it feels like electrical shock and comes about every minute. She states nothing makes it better or worse. She did not take anything for it. She states that she is very worried that she has a brain aneurysm. She denies any arm or leg symptoms. She states that she feels very anxious. [facility] Medical History Anxiety Home Medications alprazolam 0.5 mg PO TID 10/31/14 [History Last Taken 11/09/17 11:00] levothyroxine 125 mcg PO DAILY 05/14/21 [History Last Taken Unknown] ibuprofen 600 mg PO Q6H PRN PRN #20 tablet 06/23/21 [Rx Last Taken Unknown] Allergy/AdvReac Type Severity Reaction Status Date / Time codeine Allergy Shortness Verified 05/14/21 20:08 [From Tylenol-Codeine #3] of breath diphenhydramine HCl Allergy Unknown Verified 05/14/21 20:08 [From Benadryl] nitrofurantoin Allergy Unknown Verified 05/14/21 20:08 [From Macrobid] erythromycin base AdvReac YEAST Verified 05/14/21 20:08 INFECTION oxycodone [From Percocet] AdvReac Other Verified 05/14/21 20:08 Surgical History H/O thyroidectomy H/O: hysterectomy Social History (Updated 06/23/21 @ 04:[address] Supa Madden DO) Smoking Status: Current every day smoker tobacco type: cigarettes substance use type: does not use ROS ROS ED Constitutional Constitutional ED: Denies chills or weight loss Eyes Eyes: Denies change in vision or diplopia ENT ENT ED: Denies ear pain, rhinorrhea or sore throat Cardiovascular Cardiovascular: Denies chest pain, orthopnea, palpitations or racing heartbeat Respiratory/Chest Respiratory/Chest: Denies cough, dyspnea or orthopnea Gastrointestinal Gastrointestinal: Denies abdominal pain, diarrhea, nausea or vomiting Genitourinary Genitourinary ED: Denies dysuria, hematuria or urinary frequency Musculoskeletal Musculoskeletal: Reports neck pain; Denies arthralgias or myalgias Integumentary Denies abscess or rash Neurologic Neurologic: Reports headache(s); Denies weakness Psychiatric Psychiatric: Denies anxiety, depression, suicidal ideation or suicidal thoughts Endocrine Endocrinology: Denies polydipsia, polyphagia or polyuria Allergic/Immunologic Allergic/Immunologic ED: Denies mouth swelling, tongue swelling or urticaria EXAM Physical Exam Const Vital Signs: 06/23/21 04:34 Temperature 98.1 F Temperature Source Temporal Pulse Rate 72 Respiratory Rate 18 Blood Pressure 120/50 L Blood Pressure Mean 73 Pulse Ox 95 Oxygen Delivery Method Room Air Positive well nourished and well developed General Appearance ED: well developed HEENT Reports normocephalic, head/scalp atraumatic and moist mucous membranes Eyes PERRL and EOMs intact bilaterally Neck no lymphadenopathy, supple and no JVD Resp normal respiratory effort and clear to auscultation bilaterally Cardio regular rate, regular rhythm and no murmurs GI normal to inspection, nondistended, normoactive bowel sounds and non-tender Palpation: soft Back/Spine no CVA tenderness and normal ROM Extremity normal to inspection General Extremety ED: Negative for edema General Extremity: Negative for edema Neuro oriented x3 and CN's II-XII intact bilaterally Sensorium / Orientation: alert Motor Exam: strength 5/5 throughout Psych mental status grossly normal Mood & Affect: Negative for depressed or tearful Skin no rashes or lesions noted and no wounds MDM MDM MDM Narrative Medical decision making narrative: CBC and BMP were negative. CTA of the neck and head showed no acute findings. Based on what the patient is describing it sounds rather neuropathic. I do not know if there is something in the suboccipital muscles that are irritating a nerve. Patient does not wish to have anything more than ibuprofen for personal reasons. I informed her this becomes really problematic she may want to see a pain management doctor for nerve block. Lab Data Attestation: I reviewed the patient's lab results. Labs: Laboratory Results - last 24 hr 06/23/21 06/23/21 05:04 05:04 WBC 5.8 RBC 4.09 L Hgb 12.8 Hct 37.4 MCV 91.4 MCH 31.3 MCHC 34.2 RDW Std Deviation 40.9 RDW Coeff of [place]net[place] 12.2 Plt Count 189 MPV 11.3 Immature Gran % (Auto) 0.200 Neut % (Auto) 50.9 Lymph % (Auto) 36.7 [place] % (Auto) 8.6 Eos % (Auto) 3.1 Baso % (Auto) 0.5 Absolute Neuts (auto) 3.0 Absolute Lymphs (auto) 2.13 Nucleated RBC % 0 Sodium 141 Potassium 3.5 Chloride 111 H Carbon Dioxide 24.0 Anion Gap 6 BUN 20 H Creatinine 0.70 Estim Creat Clear Calc 91.32 Est GFR (MDRD) Af Amer 117 Est GFR (MDRD) Non-Af 97 BUN/Creatinine Ratio 28.7 H Glucose 119 H Calcium 8.0 L Radiography Diagnostic Testing: Clinical Impression(s) from Imaging Studies Head/Neck CTA 06/23/21 04:53 IMPRESSION: Negative CT Brain, CTA Carotid, and CTA Brain. Individualized dose optimization techniques were used for this CT. at 0630 Reported and signed by: Marty Edwards MD Electronically Signed: Marty Edwards MD at 6:29 EDT Tel , Service support , Discharge Plan Triage Chief Complaint: Headache ED Provider: Supa Madden Dx/Rx/DC Orders Clinical Impression: Cephalalgia Prescriptions: New ibuprofen 600 MG tablet 600 mg PO Q6H PRN PRN (Reason: pain) Qty: 20 RF: 0 No Action alprazolam 0.5 MG tablet 0.5 mg PO TID RF: 0 levothyroxine 125 mcg tablet 125 mcg PO DAILY RF: 0 Primary Care Provider: Sergio Tejead Referrals: Tita Honeycutt MD [STAFF PHYSICIAN] - As Needed (For pain management. This is the type of physician you would want to see that does nerve blocks.) Sergio Tejeda MD [Primary Care Provider] - As Needed Disposition Disposition: Home, Self Care
[2021-06-23 05:09] LABS: Absolute Lymphocyte Count 2.13 X10^3/uL (0.83-4.51); Basophil# 0.03 X10^3/uL; Basophil% 0.5 % (0-1); Eosinophil# 0.18 X10^3/uL; Eosinophils% 3.1 % (0-5); Hematocrit 37.4 % (37-47); Hemoglobin 12.8 g/dL (12.0-15.0); Lymphocyte # 2.13 X10^3/ul (0.83-4.51); Lymphocyte % 36.7 % (19-41); Mean Corp Hgb Conc 34.2 g/dL (32-36); Mean Corpuscular Hgb 31.3 pg (27.0-32.0); Mean Corpuscular Volume 91.4 fL (81-99); Mean Platelet Vol. 11.3 fl (6.2-12.0); Monocyte% 8.6 % (0-10); NRBC Flagged by Analyzer 0 % (0-5); Neutrophil # 2.95 X10^3/uL (2.7-7.7); Neutrophil % 50.9 % (47-70); Platelet Count 189 K/mm3 (150-450); RBC Distribution Width CV 12.2 % (11.6-14.6); RBC Distribution Width SD 40.9 fl (35.1-43.9); Red Blood Count 4.09 M/mm3 (4.2-5.4); White Blood Count 5.8 K/mm3 (4.4-11.0)
[2021-06-23 05:26] LABS: Anion Gap 6 (5-15); BUN 20 mg/dL (7-18); BUN/Creat Ratio 28.7 RATIO (10-20); Chloride 111 mmol/L (98-107); EST Glomerular Filtration Rate 97 mL/min (>60); Est Glom Filt Rate - Afr Amer 117 mL/min (>60); Estimated Creatinine Clearance 91.32 ml/min; Glucose 119 mg/dL (74-106); Potassium 3.5 mmol/L (3.5-5.1); Sodium Level 141 mmol/L (136-145)
== END 2021-06-23 07:00 | disposition home or self-care (01) ==
PROVIDERS: Emergency Provider Emergency Medicine; PCP Family Medicine
DX: R51.9 Headache, unspecified (principal); F41.9 Anxiety disorder, unspecified; F17.210 Nicotine dependence, cigarettes, uncomplicated; Z79.899 Other long term (current) drug therapy
CPT/HCPCS: 70496; 70498; 80048; 85025; 99282; Q9967

== ENCOUNTER → 2021-07-11 | Outpatient (CLI) | payer MEDICAID, SELFPAY | END | disposition home or self-care (01) | PROVIDERS: PCP Family Medicine; Visit Provider Student in an Organized Health Care Education/Training Program | DX: N89.8 Other specified noninflammatory disorders of vagina (principal) ==

== ENCOUNTER 2023-07-03 03:29 | Emergency (ER) | payer MEDICAID, SELFPAY ==
[2023-07-03 03:29] VITALS: BP 159/96; PULSE 116; RESP 18; TEMP 36.6; O2SAT 99; BMI 30.4
--- NOTE | 2023-07-03 03:40 | CT_ITS ---
EXAM: CT HEAD WITHOUT INTRAVENOUS CONTRAST CLINICAL INDICATION: trauma trauma TECHNIQUE: Multiple axial images were obtained of the head without intravenous contrast. This CT exam was performed using one or more of the following dose reduction techniques: automated exposure control, adjustment of the mA and/or kV according to patient size, and/or use of iterative reconstruction technique. RADIATION DOSE: CTDIvol = 44.99 mGy, DLP = 1380.17 mGy-cm COMPARISON: CT scan brain 06/23/2020 1 mm FINDINGS: BRAIN AND EXTRA-AXIAL SPACES: Unremarkable. No intra- or extra-axial hemorrhage. No evidence of acute infarct. No intracranial mass or mass effect. There is preservation of the padron/white matter interface. Posterior fossa structures are unremarkable. Ventricles are appropriate for age. No hydrocephalus. Basal cisterns are patent. BONES/JOINTS: Unremarkable. No discrete lytic or blastic abnormalities. SOFT TISSUES: There is a left parietal scalp wound. SINUSES: Unremarkable as visualized. Clear. MASTOID AIR CELLS: Unremarkable. Clear. ORBITS: Visualized globes, extraocular muscles, optic nerves and retrobulbar fat appear unremarkable. CT/Brain/Head without Contrast IMPRESSION: No demonstrated acute intracranial process. Electronically Signed: Lon Espinal MD at 4:31 EDT Reading Location ID and State: [facility] / [place] , Service support ,
--- NOTE | 2023-07-03 03:40 | CT_ITS ---
EXAM: CT CERVICAL SPINE WITHOUT INTRAVENOUS CONTRAST CLINICAL INDICATION: trauma trauma TECHNIQUE: Helically acquired images were obtained of the cervical spine without intravenous contrast. 2D reformatted images were reviewed. This CT exam was performed using one or more of the following dose reduction techniques: automated exposure control, adjustment of the mA and/or kV according to patient size, and/or use of iterative reconstruction technique. RADIATION DOSE: CTDIvol = 26.81 mGy, DLP = 1380.17 mGy-cm COMPARISON: CT scan cervical spine 06/11/2016. FINDINGS: VERTEBRAE: There is straightening of the normal lordotic curve, a nonspecific finding, which may be due to positioning or which might be due to muscle spasm. No fracture. No traumatic subluxation. No discrete lytic or blastic abnormality. Normal craniocervical junction and cervicothoracic junction. DISCS/SPINAL CANAL/NEURAL FORAMINA: Unremarkable. Disc heights are preserved. No critical stenosis. SOFT TISSUES: Unremarkable. No prevertebral soft tissue swelling. LYMPH NODES: Unremarkable. No cervical adenopathy. THYROID: The thyroid gland is surgically absent. LUNG APICES: Unremarkable as visualized. Clear. CT/Spine Cervical without Contras IMPRESSION: No demonstrated fracture, subluxation, or significant degenerative changes. Electronically Signed: Lon Espinal MD at 4:35 EDT Reading Location ID and State: [facility] / [place] , Service support ,
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
--- NOTE | 2023-07-03 03:55 | RAD_ITS ---
EXAM: XR LEFT ELBOW COMPLETE, 3 OR MORE VIEWS CLINICAL INDICATION: trauma trauma TECHNIQUE: Frontal, lateral and oblique views of the left elbow. COMPARISON: No relevant prior studies available. FINDINGS: BONES/JOINTS: Unremarkable. There is no displacement of the anterior or posterior fat pads. No acute fracture. No subluxation. Normal alignment. Preservation of the joint space. No destructive or sclerotic lesions. SOFT TISSUES: Unremarkable. No soft tissue swelling or gas. No radiopaque foreign body. RAD/Elbow min 3 Views IMPRESSION: Negative left elbow. Electronically Signed: Lon Espinal MD at 4:36 EDT Reading Location ID and State: [facility] / [place] , Service support ,
[2023-07-03 04:15] LABS: Bacteria 0 SEEN /hpf (None Seen); Mucous, Urine 0 SEEN /hpf (<or=2+); Red Blood Cells-Urine 0 SEEN /hpf (0-5); Squamous Epithelial Cells - UA 0 SEEN /hpf (5-10); White Blood Cells 0 SEEN /hpf (0-5)
[2023-07-03 04:16] LABS: Color, Urine Yellow (Yellow); Glucose, Dipstick Normal (Normal); Ketone-Dipstick Negative (Negative); Leukocyte Esterase-Dipstick Negative /ul (Negative); Nitrite-Dipstick Negative (Negative); Occult Blood-Urine 10 /ul (Negative); Protein-Dipstick 15 mg/dl (Negative); Urine Bilirubin Dipstick Negative (Negative); Urine Clarity Clear (Clear); Urine Urobilinogen Normal (Normal)
[2023-07-03 04:21] LABS: Absolute Lymphocyte Count 2.19 X10^3/uL (0.83-4.51); Absolute Neutrophil Count 3.8 X10^3/uL (2.0-7.7); Basophil# 0.06 X10^3/uL; Basophil% 0.9 % (0-1); Eosinophil# 0.14 X10^3/uL; Eosinophils% 2.1 % (0-5); Hematocrit 41.6 % (37-47); Lymphocyte # 2.19 X10^3/ul (0.83-4.51); Lymphocyte % 33.6 % (19-41); Mean Corp Hgb Conc 33.7 g/dL (32-36); Mean Corpuscular Hgb 32.2 pg (27.0-32.0); Mean Corpuscular Volume 95.6 fL (81-99); Mean Platelet Vol. 9.9 fl (6.2-12.0); Monocyte# 0.36 X10^3/uL; Monocyte% 5.5 % (0-10); NRBC Flagged by Analyzer 0 % (0-5); Neutrophil # 3.76 X10^3/uL (2.7-7.7); Neutrophil % 57.7 % (47-70); Platelet Count 228 K/mm3 (150-450); RBC Distribution Width CV 12.8 % (11.6-14.6); RBC Distribution Width SD 45.1 fl (35.1-43.9); Red Blood Count 4.35 M/mm3 (4.2-5.4); White Blood Count 6.5 K/mm3 (4.4-11.0)
[2023-07-03 04:39] LABS: ALB/GLOB Ratio 1.2 RATIO (0.9-2.4); AST(SGOT) 20 U/L (15-37); Alanine Aminotransfer ALT/SGPT 39 U/L (13-56); Albumin, Serum 4.1 g/dL (3.2-5.0); Alkaline Phosphatase 56 U/L (45-117); Anion Gap 8 (5-15); BUN 18 mg/dL (7-18); BUN/Creat Ratio 24.4 RATIO (10-20); Calcium,Total 8.4 mg/dL (8.5-10.1); Chloride 113 mmol/L (98-107); Creatinine, Serum 0.74 mg/dL (0.55-1.02); EST Glomerular Filtration Rate 90 mL/min (>60); Est Glom Filt Rate - Afr Amer 109 mL/min (>60); Estimated Creatinine Clearance 81.16 ml/min; Globulin 3.5 g/dL (2.2-4.2); Glucose 119 mg/dL (74-106); Protein, Total 7.6 g/dL (6.4-8.2); Sodium Level 140 mmol/L (136-145)
[2023-07-03 04:46] LABS: Amphetamine Urine VISTA NEGATIVE (<1000 ng/mL); Barbiturate Urine VISTA NEGATIVE (< 200 ng/mL); Benzodiazepine Urine VISTA NEGATIVE (< 200 ng/mL); Cocaine Urine VISTA NEGATIVE (< 300 ng/mL); Ecstacy Urine VISTA NEGATIVE (< 500 ng/mL); Methadone Urine VISTA NEGATIVE (< 300 ng/mL); PCP Urine VISTA NEGATIVE (< 25 ng/mL); THC Urine VISTA NEGATIVE (< 50 ng/mL); Vista UDS pH Range 4
[2023-07-03 06:29] VITALS: BP 105/59; PULSE 74; RESP 16; O2SAT 97
[2023-07-03] MEDS: Acetaminophen 500 MG Tablet 1000 MG PO (06:44)
[2023-07-03] MEDS: 0.9% Normal Saline (500mL Bag) 500 ML 999 ML IV (08:37)
--- NOTE | 2023-07-03 09:10 | RAD_ITS ---
STUDY: X-RAY - UNILATERAL RIBS ( LEFT ) WITH CHEST REASON FOR EXAM: Female, 48 years old. Left-sided rib pain following a fall. TECHNIQUE - RIBS: 4 view(s) of the ribs. TECHNIQUE - CHEST: Single PA view of the chest. COMPARISON: None. FINDINGS - RIBS: Normal visualized ribs without a demonstrated fracture. FINDINGS - CHEST: Hyperinflation. There is no demonstrated pleural abnormality. Normal size heart. Normal mediastinum and paloma. Normal visualized pulmonary arteries. Normal visualized aortic arch and descending thoracic aorta. Normal visualized thoracic spine. Normal visualized ribs, clavicles, and shoulders. There is no demonstrated abnormality of the visualized soft tissue structures of the upper abdomen. RAD/Ribs Uni Min 3V w/PA Chest IMPRESSION: RIBS: Normal x-ray examination of the ribs. CHEST: Normal x-ray examination of the chest. Electronically Signed: Steven Casey MD at 9:41 EDT ,
[2023-07-03 12:44] VITALS: RESP 16
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
== END 2023-07-03 12:45 | disposition home or self-care (01) ==
PROVIDERS: Emergency Provider Emergency Medicine; PCP Family Medicine; Visit Provider Emergency Medicine
DX: S09.90XA Unspecified injury of head, initial encounter (principal); F10.129 Alcohol abuse with intoxication, unspecified; F17.210 Nicotine dependence, cigarettes, uncomplicated; S50.02XA Contusion of left elbow, initial encounter; S50.312A Abrasion of left elbow, initial encounter; R51.9 Headache, unspecified; X58.XXXA Exposure to other specified factors, initial encounter
CPT/HCPCS: 70450; 71101; 72125; 73080; 80053; 80307; 81001; 82077; 85025; 96360; 96361; 99285; J7030; A4216

== ENCOUNTER 2025-03-20 14:30 | Emergency (ER) | payer MEDICAID, SELFPAY ==
[2025-03-20 14:30] VITALS: BP 141/63; PULSE 93; RESP 16; TEMP 36.8; O2SAT 100; BMI 29.4
== END 2025-03-20 14:32 | disposition left against medical advice (07) ==
LOC: ED 14:36
PROVIDERS: PCP Family Medicine
DX: Z53.21 Procedure and treatment not carried out due to patient leaving prior to being seen by health care provider (principal)